=== PATIENT | male | born 1975 | race Caucasian/White ===

== ENCOUNTER 2017-08-02 08:57 | Emergency (ER) | payer MEDICAID ==
--- NOTE | 2017-08-02 09:14 | EDPHY ---
H & P Stated Complaint: dog bite to lip this pm Time Seen by Provider: 08/02/17 09:02 HPI/ROS: Chief Complaint: Dog bite HPI: 42-year-old male states that he got bit in the face by a friend's dog this morning when he got in the car. He sustained a laceration of his upper lip. He is up-to-date in his tetanus. States he has a history of diabetes for which she was taking sugar pills. He states at that time he was in [facility] and he was noted to have low blood sugars. Is not currently on any other medications. No other injuries at this time. ROS: 10 point Review of Systems is negative except as noted in the HPI. Social History: Positive smoking Physical Exam: General: Awake, alert, no acute distress Face: Patient has a small skin avulsion to his right upper lip which is superficial. There is no through and through laceration. There is no bony deformities. There is no puncture wounds. Patient has a dental plate in place. There is no dental trauma noted. No mandibular tenderness. No erythema. Skin: No rash - Personal History Current Tetanus Diphtheria and Acellular Pertussis (TDAP): Yes - Medical/Surgical History Other PMH: denies - Social History Smoking Status: Current every day smoker Constitutional: Initial Vital Signs Temperature (C) 36.6 C 08/02/17 09:08 Heart Rate 67 08/02/17 09:08 Respiratory Rate 18 08/02/17 09:08 Blood Pressure 109/84 H 08/02/17 09:08 O2 Sat (%) 97 08/02/17 09:08 O2 Delivery Mode Room Air Allergies/Adverse Reactions: No Known Allergies Allergy (Unverified 08/02/17 09:08) Home Medications: Medication Instructions Recorded NK [No Known Home Meds] 08/02/17 Medical Decision Making ED Course/Re-evaluation: Patient sustained a dog bite to his upper lip. This is superficial. There is no large puncture wound. There is no large tissue defect. There is no suturable laceration. Departure - Departure Disposition: Home, Routine, Self-Care Clinical Impression: Dog bite Condition: Good Instructions: Animal Bite (ED) Additional Instructions: Return to the emergency depart for increasing redness or swelling, fevers or chills, or any other concerns. Follow up with primary care physician in 3-4 days for wound check. Referrals: Rosacci,Nicholas M, DO [Doctor of Osteopathy] - As per Instructions
[2017-08-02 09:28] VITALS: RESP 18; TEMP 98; O2SAT 97
[2017-08-02 10:27] VITALS: BP 135/62; PULSE 78
== END 2017-08-02 10:04 | disposition home or self-care (01) ==
LOC: CED 08:57
DX: S01.551A Open bite of lip, initial encounter (principal); F17.200 Nicotine dependence, unspecified, uncomplicated; W54.0XXA Bitten by dog, initial encounter